=== PATIENT | female | born 1975 | race Hispanic/Latino ===

== ENCOUNTER 2023-02-08 13:20 | Outpatient (CLI) | payer OTHER | END 2023-02-08 13:21 | disposition home or self-care (01) | LOC: CSHRAD 13:20 | PROVIDERS: ATTEND Internal Medicine Rheumatology | DX: D86.9 Sarcoidosis, unspecified (principal) | CPT/HCPCS: 71046 ==

== ENCOUNTER 2024-07-03 11:04 | Outpatient (CLI) | payer OTHER | END 2024-07-03 11:05 | disposition home or self-care (01) | LOC: CSHMAMMO 11:04 | PROVIDERS: ATTEND Family Medicine | DX: Z12.31 Encounter for screening mammogram for malignant neoplasm of breast (principal); Z80.3 Family history of malignant neoplasm of breast | CPT/HCPCS: 77063; 77067 ==